=== PATIENT | male | born 2000 | race Caucasian/White ===

== ENCOUNTER 2019-07-15 21:44 | Emergency (ER) | payer OTHER ==
[2019-07-15 22:07] VITALS: O2SAT 100
[2019-07-15 22:57] VITALS: BP 139/83; PULSE 82
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
--- NOTE | 2019-07-16 08:45 | XRAY ---
Indication: Pain following twisting injury. Comparison: None 4 views of the right knee demonstrates small nonspecific effusion. No other bony, articular, or soft tissue abnormalities.
== END 2019-07-15 23:12 | disposition home or self-care (01) ==
LOC: ED 21:44
DX: S83.8X1A Sprain of other specified parts of right knee, initial encounter (principal); M25.561 Pain in right knee; W22.8XXA Striking against or struck by other objects, initial encounter; Y93.89 Activity, other specified; Y92.89 Other specified places as the place of occurrence of the external cause
CPT/HCPCS: 73564; 99284

== ENCOUNTER 2021-12-06 18:07 | Emergency (ER) | payer OTHER ==
[2021-12-06 18:20] VITALS: BP 118/69; PULSE 90; O2SAT 95
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
[2021-12-06] MEDS ORDERED: Sodium Chloride 0.9% 1000 ML 1,000 ML IV STA (18:21)
[2021-12-06] MEDS ORDERED: Sodium Chloride 0.9% 1000 ML 1,000 ML ONE (18:28)
[2021-12-06 18:45] LABS: Absolute Neutrophil Ct (ANC) 5.78 x10^3/uL (1.4-6.9); Basophil (Absolute #) 0.04 x10^3/uL (0-0.4); Eosinophil % 1.8 % (0.00-5.0); Eosinophil (Absolute #) 0.15 x10^3/uL (0-0.5); Hematocrit 39.9 % (42-50); Hemoglobin 13.5 g/dL (12.5-18.0); Lymphocyte (Absolute #) 1.84 x10^3/uL (1.0-4.6); Lymphocytes % 21.9 % (24.0-44.0); Mean Cell Volume 92.6 fL (78-100); Mean Corpuscular Hemoglobin 31.3 pg (26-32); Mean Corpuscular Hgb Concent. 33.8 g/dL (32-36); Mean Platelet Volume 9.6 fL (7.5-11.0); Monocyte (Absolute #) 0.59 x10^3/uL (0.0-1.3); Neutrophil % 68.6 % (36.0-66.0); Platelet Count 158 x10^3/uL (150-450); Red Blood Count 4.31 x10^6/uL (4.1-5.6); Red Cell Distribution Width 13.1 % (11.5-14.0); White Blood Count 8.4 x10^3/uL (4.0-10.5)
[2021-12-06 19:01] LABS: ANION GAP 12.3 MEQ/L (5-15); BLOOD UREA NITROGEN 13 mg/dL (9-20); CHLORIDE 106 mmol/L (98-107); Carbon Dioxide 23 mmol/L (22-30); Creatinine 1 1.04 mg/dL (0.66-1.25); EST GLOMERULAR FILTRATION RATE > 60.0 ML/MIN; Glucose 84 mg/dL (74-106); Potassium 3.6 mmol/L (3.5-5.1); SODIUM 138 mmol/L (137-145)
[2021-12-06 19:29] LABS: Bacteria RARE /HPF (NEGATIVE)
[2021-12-06 19:30] LABS: Appearance CLEAR (CLEAR); Bilirubin NEGATIVE (NEGATIVE); Glucose NEGATIVE (NEGATIVE); Ketones NEGATIVE (NEGATIVE); Nitrite NEGATIVE (NEGATIVE); Ph 6.5 (5-6); Protein,Urine Dip NEGATIVE (Negative); RBC TRACE-INTACT Ery/ul (0-5); Specific Gravity 1.015 (1.005-1.025); Urine Cultured Indicated? NO; Urobilinogen 1 mg/dL (0-1)
[2021-12-06 19:31] LABS: Dipstick done @ ? MAIN LAB
== END 2021-12-06 19:53 | disposition home or self-care (01) ==
LOC: ED 18:07
DX: T67.5XXA Heat exhaustion, unspecified, initial encounter (principal); W92.XXXA Exposure to excessive heat of man-made origin, initial encounter; Y99.2 Volunteer activity; R42 Dizziness and giddiness; R11.10 Vomiting, unspecified; Z72.0 Tobacco use; Z28.310 Unvaccinated for COVID-19
CPT/HCPCS: 36000; 36415; 80048; 81015; 85025; 99283